=== PATIENT | female | born 1980 | race Caucasian/White ===

== ENCOUNTER 2020-05-09 09:17 | Outpatient (CLI) | payer OTHER ==
[2020-05-09 15:05] LABS: BASOPHILS % (AUTO) 0.8 %; EOSINOPHILS % (AUTO) 0.6 %; HCT - HEMATOCRIT 45.4 % (37.0-47.0); HGB - HEMOGLOBIN 14.9 g/dL (12.0-16.0); LYMPHOCYTES # (AUTO) 1.4 10^3/uL (1.5-3.5); LYMPHOCYTES % (AUTO) 30.1 %; MEAN CORPUSCULAR HEMOGLOBIN 31.9 pg (27.0-31.0); MEAN CORPUSCULAR HGB CONC 32.8 g/dL (32.0-36.0); MEAN CORPUSCULAR VOLUME 97.2 fL (81.0-99.0); MEAN PLATELET VOLUME 12.7 fL (7.9-10.8); MONOCYTES # (AUTO) 0.3 10^3/uL (0.0-1.0); MONOCYTES % (AUTO) 6.9 %; NEUTROPHILS # (AUTO) 2.9 10^3/uL (1.5-6.6); NEUTROPHILS % (AUTO) 61.4 %; PLT - PLATELET COUNT 240 10^3/uL (130-450); RED BLOOD COUNT 4.67 10^6/uL (4.20-5.40); RED CELL DISTRIBUTION WIDTH 13.2 % (12.0-15.0); WHITE BLOOD COUNT 4.8 x10^3/uL (4.8-10.8)
[2020-05-09 15:20] LABS: ALBUMIN 5.1 g/dL (3.2-5.5); ALBUMIN/GLOBULIN RATIO 1.6 (1.0-2.2); BILIRUBIN,TOTAL 2.6 mg/dL (0.2-1.0); CALCIUM 9.6 mg/dL (8.5-10.3); CREATININE 0.7 mg/dL (0.4-1.0); POTASSIUM 3.6 mmol/L (3.5-5.0); TOTAL PROTEIN 8.3 g/dL (6.7-8.2)
[2020-05-09 16:21] LABS: THYROID STIMULATING HORMONE 7.61 uIU/mL (0.34-5.60)
[2020-05-09 16:56] LABS: FREE T4 (FREE THYROXINE) 1.33 ng/dL (0.58-1.64)
== END 2020-05-09 09:18 | disposition home or self-care (01) ==
LOC: LAB.S 09:17
PROVIDERS: ATTEND Registered Nurse
DX: E03.9 Hypothyroidism, unspecified (principal)
CPT/HCPCS: 36415; 80053; 84439; 84443; 85025

== ENCOUNTER 2020-07-08 09:30 | Outpatient (CLI) | payer OTHER | END 2020-07-08 09:31 | disposition home or self-care (01) | LOC: LAB.S 09:30 | PROVIDERS: ATTEND Student in an Organized Health Care Education/Training Program | DX: E03.9 Hypothyroidism, unspecified (principal) | CPT/HCPCS: 36415; 81599; 84443 ==

== ENCOUNTER 2021-07-15 11:15 | Outpatient (CLI) | payer BC ==
--- NOTE | 2021-07-15 16:22 | Ultrasound Report ---
PROCEDURE: Head or Neck Soft Tissue INDICATIONS: SWELLING,MASS OR LUMP ON NECK TECHNIQUE: Real time scanning was performed of the neck region of interest, with image documentation . COMPARISON: None. FINDINGS: Roughly 2 cm lateral to the left thyroid removal scar and superior to the clavicle, there i s a heterogeneous vascular mass measuring roughly 9 mm x 4 mm x 7 mm corresponding to the area of cli nical interest. IMPRESSION: Vascular mass within the left neck as described above. Finding may indicate a focus of scarring versu s carcinoma recurrence. Reviewed by: Alexa Landry MD on 07/15/2021 3:57 PM PDT Approved by: Alexa Landry MD on 07/15/2021 3:57 PM PDT Station ID: [id number]
== END 2021-07-15 11:16 | disposition home or self-care (01) ==
LOC: DI 11:15
PROVIDERS: ATTEND Nurse Practitioner Family
DX: R22.1 Localized swelling, mass and lump, neck (principal)

== ENCOUNTER 2022-11-16 09:36 | Outpatient (CLI) | payer BC ==
--- NOTE | 2022-11-17 11:21 | Mammography Report ---
BILATERAL FIRST EVER DIGITAL SCREENING MAMMOGRAM 3D/2D WITH EXAGGERATED CC: 11/16/2022 CLINICAL: Routine screening. Family history of breast cancer. Baseline exam. No prior exams were available for comparison. Both breasts are heterogeneously dense, which may obscure small masses (category c / 51-75% glandular tissue). No significant masses, calcifications, or other findings are seen in either breast. IMPRESSION: NEGATIVE There is no mammographic evidence of malignancy. A 1 year screening mammogram is recommended. Based on the Tyrer Cuzick model (a risk assessment model) the patients lifetime risk is 15.0% and he r 10 year risk is 1.9%. According to the ACR, ACS, and NCCN guidelines, an annual breast MRI exam irene ng with mammogram is recommended if the patients lifetime risk is 20% or greater. This exam was interpreted at Station ID: [id number]. NOTE: For mammograms, a report in lay terms will be sent to the patient. Approximately 15% of breast malignancies will not be visualized mammographically. In the management of a palpable breast mass, a negative mammogram must not discourage biopsy of a clinically suspicious lesion. Electronically Signed By: Davis coombs/sacha:11/16/2022 19:04:47 letter sent: No_Letter ACR BI-RADS Category 1: Negative 3341F PARENCHYMAL PATTERN: (D) - The breast(s) demonstrate(s) heterogeneously dense fibroglandular scarlet hidalgo. BI-RADS CATEGORY: (1) - 1 Mammogram [id number] 1 year screening LATERALITY: (B)
== END 2022-11-16 09:37 | disposition home or self-care (01) ==
LOC: DI.S 09:36
DX: Z12.31 Encounter for screening mammogram for malignant neoplasm of breast (principal)

== ENCOUNTER 2023-08-10 08:35 | Outpatient (CLI) | payer BC | END 2023-08-10 08:36 | disposition home or self-care (01) | LOC: LAB.S 08:35 | PROVIDERS: ATTEND Nurse Practitioner | DX: Z84.81 Family history of carrier of genetic disease (principal) | CPT/HCPCS: 36415; 81599 ==

== ENCOUNTER 2023-11-30 08:10 | Outpatient (CLI) | payer BC ==
--- NOTE | 2023-12-01 08:33 | Mammography Report ---
BILATERAL DIGITAL SCREENING MAMMOGRAM 3D/2D WITH EXAGGERATED CC: 11/30/2023 CLINICAL: Routine screening. Family history of breast cancer. Comparison is made to exam dated: 11/16/2022 mammogram - [facility]. The breasts are heterogeneously dense, which may obscure small masses (category c / 51-75% glandular tissue). No significant masses, calcifications, or other findings are seen in either breast. There has been no significant interval change. IMPRESSION: NEGATIVE There is no mammographic evidence of malignancy. A 1 year screening mammogram is recommended. Based on the Tyrer Cuzick model (a risk assessment model) the patient's lifetime risk is 15.0% and he r 10 year risk is 2.1%. According to the ACR, ACS, and NCCN guidelines, an annual breast MRI exam irene ng with mammogram is recommended if the patient's lifetime risk is 20% or greater. This exam was interpreted at Station ID: [id number]. NOTE: For mammograms, a report in lay terms will be sent to the patient. Approximately 15% of breast malignancies will not be visualized mammographically. In the management of a palpable breast mass, a negative mammogram must not discourage biopsy of a clinically suspicious lesion. Electronically Signed By: Mireille Alegria M.D., Ph.D. eb/sacha:12/01/2023 07:36:36 ACR BI-RADS Category 1: Negative PARENCHYMAL PATTERN: (D) - The breast(s) demonstrate(s) heterogeneously dense fibroglandular scarlet hidalgo. BI-RADS CATEGORY: (1) - 1 RECOMMENDATION: (ANNUAL) - Recommend routine annual screening mammography. [id number] 1 year screening LATERALITY: (B)
== END 2023-11-30 08:11 | disposition home or self-care (01) ==
LOC: DI.S 08:10
DX: Z12.31 Encounter for screening mammogram for malignant neoplasm of breast (principal); R92.333 Mammographic heterogeneous density, bilateral breasts